=== PATIENT | female | born 1970 | race American Indian/Alaskan Native ===

== ENCOUNTER 2019-02-18 07:10 | Day surgery (SDC) | payer BC ==
[2019-02-14 13:58] LABS: CLARITY,URINE CLEAR (Clear); COLOR,URINE YELLOW (Yellow); GLUCOSE, URINE NEGATIVE (Neg); KETONES,URINE NEGATIVE (Neg); LEUKOCYTE ESTERASE ,URINE NEGATIVE (Neg); NITRITES, URINE NEGATIVE (Neg); OCCULT BLOOD,URINE SMALL (Neg); PH,URINE 5.5 (4.8-8.0); PROTEIN,URINE NEGATIVE (Neg); UROBILINOGEN,URINE 0.2 E.U/dL (0.2-1.0)
[2019-02-14 14:03] LABS: UA COLLECTION TYPE VOIDED
[2019-02-14 14:05] LABS: BASOPHILS # (AUTO) 0.1 X10'3 (0-0.2); BASOPHILS % (AUTO) 0.7 % (0-1); EOSINOPHILS # (AUTO) 0.1 X10'3 (0-0.9); EOSINOPHILS % (AUTO) 1.5 % (0-6); LYMPHOCYTES # (AUTO) 3.4 X10'3 (1.1-4.8); LYMPHOCYTES % (AUTO) 40.2 % (21-51); MEAN CORPUSCULAR HEMOGLOBIN 29.4 PG (27.0-31.0); MEAN CORPUSCULAR VOLUME 86.3 FL (78-98); MEAN PLATELET VOLUME 8.6 FL (7.4-10.4); MONOCYTES # (AUTO) 0.5 X10'3 (0-0.9); MONOCYTES % (AUTO) 6.2 % (2-12); NEUTROPHILS # (AUTO) 4.4 X10'3 (1.8-7.7); NEUTROPHILS % (AUTO) 51.4 % (42-75); PRE OP HEMATOCRIT 43.8 % (35.0-45.0); PRE OP HEMOGLOBIN 14.9 g/dL (12.0-16.0); PRE OP PLATELET COUNT 257 X10'3 (140-440); RED BLOOD COUNT 5.08 X10'6 (4.20-5.60); RED CELL DISTRIBUTION WIDTH 13.9 % (11.5-14.5)
[2019-02-14 14:05] LABS: URINE HCG NEGATIVE (NEG)
[2019-02-14 14:06] LABS: BACTERIA,URINE 2+ /HPF (Neg); MUCUS STRANDS FEW /LPF (Neg); RBC,URINE 0-2 /HPF (0-2); SQUAMOUS EPITHELIAL CELL,UR MODERATE /LPF (FEW)
[2019-02-14 14:11] LABS: ALBUMIN 4.3 G/DL (3.4-5.0); ALBUMIN/GLOBULIN RATIO 1.3 (1.1-1.5); ALKALINE PHOSPHATASE 51 IU/L (46-116); BLOOD UREA NITROGEN 12 MG/DL (7-18); BUN/CREATININE RATIO 12.5 (6.6-38.0); CALCIUM 9.1 MG/DL (8.5-10.1); CHLORIDE 105 MMOL/L (99-107); CREATININE 0.96 MG/DL (0.40-0.90); PRE OP ALT 32 U/L (30-65); PRE OP ANION GAP 8 (8-16); PRE OP AST 18 U/L (10-37); PRE OP BILIRUB, TOTAL 0.6 MG/DL (0.0-1.0); PRE OP GLUCOSE 89 MG/DL (70-104); PRE OP POTASSIUM 3.5 MMOL/L (3.4-5.1); PRE OP SODIUM 139 MMOL/L (135-145); TOTAL CARBON DIOXIDE 26.3 MMOL/L (24-32); TOTAL PROTEIN 7.7 G/DL (6.4-8.2); eGFR 62 ML/MIN
[~2019-02-18] VITALS: Ht 160 cm; Wt 90.7 kg
[2019-02-18] VITALS (7 sets, daily range): BP systolic 130–156; BP diastolic 88–103
[~2019-02-18 07:10] MED LIST: CYCL-1 PO; DICL75TA5 PO; OMEP20CA10 PO; ceFAZolin 2gm in dextrose, iso 100 ML IV ONE; famotidine 20mg tablet PO ONE; ringers solution, lacted 1,000 ML IV SCH
--- NOTE | 2019-02-18 08:00 | NUR ---
ANESTHESIA: DR DARBY NOTIFIED OF ELEVATED BP Addendum: 02/18/19 at 0902 by Jemima Cruz RN Amended: Links added.
[2019-02-18] MEDS ORDERED: morphine 4 MG/ML inj SYRINge IV PRN ×2 (09:15)
[2019-02-18] MEDS ORDERED: ringers solution, lacted 1,000 ML IV SCH (09:15)
[2019-02-18] MEDS ORDERED: ondansetron/PF 4mg/2ml inj IV PRN (09:15)
[2019-02-18] MEDS ORDERED: ketorolac trometh. 30mg/ml inj. IV ONE (09:15)
[2019-02-18] MEDS ORDERED: proCHLORperazine 10 MG/2 ml inj IV PRN (09:15)
[2019-02-18] MEDS ORDERED: meperidine/PF 25mg/ml syringe IV PRN ×3 (09:15)
[2019-02-18] MEDS ORDERED: sevoflurane 250ml liquid IH ONE (10:00)
[2019-02-18] MEDS ORDERED: BUPIVAcaine/PF 2.5 mg/ml (0.25%) 30ml vial ONE (10:02)
[2019-02-18] MEDS ORDERED: povidone-iodine 10% topical ointment 28.4gm TP ONE (10:02)
[2019-02-18] MEDS ORDERED: methylene blue (5mg/ml) 50mg/10ml ampul IV ONE (10:02)
[2019-02-18] MEDS ORDERED: fentaNYL/PF 50MCG/1 ML 2ML syringe ONE (10:07)
[2019-02-18] MEDS ORDERED: midazolam 2 mg/2 ml injection ONE (10:07)
[2019-02-18] MEDS ORDERED: propofol inj 20 ML IV ONE (10:08)
[2019-02-18] MEDS ORDERED: rocuronium 10mg/ml inj IV ONE (10:33)
[2019-02-18] MEDS ORDERED: ondansetron/PF 4mg/2ml inj ONE (10:33)
[2019-02-18] MEDS ORDERED: dexamethasone sod phosphate 4mg/ml inj. ONE (10:33)
[2019-02-18] MEDS ORDERED: neostigmine methylsulfate 1 MG/ML 10ml vial ONE (11:08)
[2019-02-18] MEDS ORDERED: glycopyrrolate 0.2mg/ml inj ONE (11:08)
--- NOTE | 2019-02-18 11:10 | NUR ---
Received from OR via bed, accompanied by Anesthesiologist. Report received. Initial physical assessment done and recorded.
[2019-02-18] MEDS ORDERED: traMADol 50MG tablet PO ONE (11:40)
--- NOTE | 2019-02-18 12:15 | NUR ---
Discharge criteria met, discharge instructions given, demonstrates verbal understanding. Discharged home in good condition.
== END 2019-02-18 12:15 | disposition home or self-care (01) ==
LOC: PAS 07:10
PROVIDERS: ATTEND Surgery
DX: L05.91 Pilonidal cyst without abscess (principal); I10 Essential (primary) hypertension; K21.9 Gastro-esophageal reflux disease without esophagitis; F41.9 Anxiety disorder, unspecified; M19.90 Unspecified osteoarthritis, unspecified site; F17.210 Nicotine dependence, cigarettes, uncomplicated; G47.00 Insomnia, unspecified; Z88.8 Allergy status to other drugs, medicaments and biological substances
CPT/HCPCS: 11771; 36415; 80053; 81001; 81025; 82948; 85025; 87088; A6257; J0690; J1100; J2250; J2405; J2704; J2710; J3010; J3490; A6449; A7000; J7120

== ENCOUNTER 2019-02-24 10:10 | Outpatient (CLI) | payer BC ==
[~2019-02-24 10:10] MED LIST changes: -ceFAZolin 2gm in dextrose, iso 100 ML IV ONE; -famotidine 20mg tablet PO ONE; -ringers solution, lacted 1,000 ML IV SCH
--- NOTE | 2019-02-24 12:00 | NUR ---
Patient ambulated independently from [facility] and was admitted to outpatient wound care for physician visit with Jeffry Hanley MD. Wound assessed by RN. New patient assessment completed with review of patient's medical history and current medications. 1155 -Dr. Hanley at bedside accompanied by RN. Wound assessed by MD. Plan of care discussed with patient. No dressing ordered or placed. Patient instructed on the signs and symptoms of infection and to call the Wound Center if any occur or to go to the ED if we are closed: Increased pain in wound Increase in drainage from the wound Redness in the skin surrounding the wound Bleeding from the wound Temperature of 101 or greater Patient instructed that the weight of their body puts a large amount of pressure on their wounds. This pressure keeps the new tissue from growing and inhibits new blood vessels from forming. Explained that, if they continue to bear weight on a body part that has a wound, the time it takes to heal the wound increases, the wound may get worse or the wound may not heal at all. Patient verbalized understanding of all discharge instructions and plan of care and ambulated independently out to [facility] in stable condition with no sign or symptom of distress at time of discharge.
== END 2019-02-24 11:56 | disposition home or self-care (01) ==
LOC: WOUND CARE 10:10 → EDSTATUS 10:30 → WOUND CARE 11:56
PROVIDERS: ATTEND Surgery
DX: T81.89XA Other complications of procedures, not elsewhere classified, initial encounter (principal); L98.492 Non-pressure chronic ulcer of skin of other sites with fat layer exposed; I10 Essential (primary) hypertension; K21.9 Gastro-esophageal reflux disease without esophagitis; G47.00 Insomnia, unspecified; M19.90 Unspecified osteoarthritis, unspecified site; F41.9 Anxiety disorder, unspecified; F17.210 Nicotine dependence, cigarettes, uncomplicated; Y83.8 Other surgical procedures as the cause of abnormal reaction of the patient, or of later complication, without mention of misadventure at the time of the procedure
CPT/HCPCS: G0463

== ENCOUNTER 2019-02-27 11:15 | Outpatient (CLI) | payer BC ==
--- NOTE | 2019-02-27 13:00 | NUR ---
Patient ambulated independently from [facility] and was admitted to outpatient wound care for physician visit with Jeffry Hanley MD. Wound assessed. Patient assessed for changes in conditions, medications and medical history. 1250 - Dr. Hanley at bedside accompanied by RN. Wound assessed by . Procedure performed as detailed in the physician progress/procedure note. Plan of care discussed with patient. No dressing placed or ordered. Patient is discharged from the wound clinic to follow up on an as needed basis. Patient instructed on the signs and symptoms of infection and to call the Wound Center if any occur or to go to the ED if we are closed: Increased pain in wound Increase in drainage from the wound Redness in the skin surrounding the wound Bleeding from the wound Temperature of 101 or greater Patient instructed that the weight of their body puts a large amount of pressure on their wounds. This pressure keeps the new tissue from growing and inhibits new blood vessels from forming. Explained that, if they continue to bear weight on a body part that has a wound, the time it takes to heal the wound increases, the wound may get worse or the wound may not heal at all. Patient verbalized understanding of all discharge instructions and plan of care and ambulated independently out to [facility] in stable condition with no sign or symptom of distress at time of discharge.
== END 2019-02-27 13:30 | disposition home or self-care (01) ==
LOC: WOUND CARE 11:15 → EDSTATUS 11:30 → WOUND CARE 13:30
PROVIDERS: ATTEND Surgery
DX: T81.89XD Other complications of procedures, not elsewhere classified, subsequent encounter (principal); L98.492 Non-pressure chronic ulcer of skin of other sites with fat layer exposed; I10 Essential (primary) hypertension; K21.9 Gastro-esophageal reflux disease without esophagitis; G47.00 Insomnia, unspecified; M19.90 Unspecified osteoarthritis, unspecified site; F41.9 Anxiety disorder, unspecified; F17.210 Nicotine dependence, cigarettes, uncomplicated; Y83.8 Other surgical procedures as the cause of abnormal reaction of the patient, or of later complication, without mention of misadventure at the time of the procedure
CPT/HCPCS: G0463